=== PATIENT | female | born 1945 | race Caucasian/White ===

== ENCOUNTER 2017-02-08 13:41 | Inpatient (IN) | payer OTHER, BC ==
[~2017-02-08] VITALS: Ht 154.9 cm; Wt 132.8 kg
[~2017-02-08 13:41] MED LIST: ADVIL200 MG PO; ANASTROZOLE1 MG PO; ASMANEX TW200 MICRO1 IH; BACITRACIN28.4 GM TP; CALTRATE 6001 TABLET PO; CLARITIN10 M3 PO; FLONASE16 G1 BOTH NARES; LEVAQUIN750 MG PO; LOTRIMIN AF24 GM TP; MONTELUKAST SOD10 MG PO; NEOSPORIN68 ML TP; PROAIR HFA8.5 GM IH; REFRESH TEARS15 ML OP; TEGRETOL-XR,CA400 MG PO
[2017-02-08 14:51] LABS: HEMATOCRIT 42.5 % (36.0-46.0); MCH 31.1 PG (29.0-34.0); MCHC 32.2 G/DL (30.0-36.0); MCV 96.6 FL (83-99); PLATELET COUNT 204 K/uL (156-360); RBC DIS.WIDTH-CV 13.1 % (11.8-14.6); RBC DIS.WIDTH-SD 46.8 % (39-53); WHITE BLOOD COUNT 12.1 K/uL (4.1-10.2)
[2017-02-08 15:03] LABS: CHLORIDE 104 mEq/L (99-109); D-DIMER ELISA 0.94 mg/L FEU (< 0.57); INTER. NORMALIZED RATIO 1.1; POTASSIUM 3.9 mEq/L (3.7-5.4); PROTHROMBIN TIME 10.7 (9.2-11.2); PTT 29.1 (25-32); SODIUM 138 mEq/L (136-147)
[2017-02-08 15:04] LABS: GLUCOSE 123 mg/dL (70-99)
[2017-02-08 15:06] LABS: ANION GAP 11 MEQ/L (2-14)
[2017-02-08 15:08] LABS: GFR ESTIMATE (CALCULATED) > 59 mL/min/
[2017-02-08 15:09] LABS: UREA NITROGEN (BUN) 16 mg/dL (9-23)
[2017-02-08 15:15] LABS: TROP-I INTERPRETATION NEGATIVE; TROPONIN-I < 0.01 ng/mL (0.0-0.30)
[2017-02-08] MEDS ORDERED: VENTOLIN HFA18 GM IH (18:37)
[2017-02-08] MEDS ORDERED: CLARITIN,ALAVAR10 MG PO (18:37)
[2017-02-08] MEDS ORDERED: REFRESH TEARS15 ML BOTH EYES (18:38)
[2017-02-08] MEDS ORDERED: NEOSPORIN ANT70.8 GM TP (18:39)
[2017-02-08] MEDS ORDERED: SYMBICORT60 INHALAT IH (18:40)
[2017-02-09 00:31] VITALS: BP 131/65
[2017-02-09 03:44] VITALS: BP 148/67
[2017-02-09 07:54] LABS: HEMATOCRIT 41.1 % (36.0-46.0); MCH 31.5 PG (29.0-34.0); MCHC 32.6 G/DL (30.0-36.0); MCV 96.7 FL (83-99); MEAN PLAT.VOLUME 9.8 uM^3 (9.5-12.4); PLATELET COUNT 219 K/uL (156-360); RBC DIS.WIDTH-CV 13.1 % (11.8-14.6); RBC DIS.WIDTH-SD 46.5 % (39-53); RED BLOOD COUNT 4.25 M/uL (3.80-5.20); WHITE BLOOD COUNT 10.3 K/uL (4.1-10.2)
[2017-02-09 08:00] VITALS: BP 134/63
[2017-02-09 11:55] VITALS: BP 143/61
[2017-02-09 15:01] VITALS: BP 140/55
[2017-02-09 19:21] VITALS: BP 147/65
[2017-02-10 01:15] VITALS: BP 131/59
[2017-02-10 03:43] VITALS: BP 136/58
[2017-02-10 07:51] VITALS: BP 130/59
[2017-02-10 10:57] VITALS: BP 143/70
[2017-02-10 15:44] VITALS: BP 129/67
[2017-02-11 01:11] VITALS: BP 109/55
[2017-02-11 08:00] VITALS: BP 154/67
[2017-02-11 08:30] LABS: HEMATOCRIT 41.8 % (36.0-46.0); MCH 30.6 PG (29.0-34.0); MCHC 31.6 G/DL (30.0-36.0); MEAN PLAT.VOLUME 9.3 uM^3 (9.5-12.4); PLATELET COUNT 207 K/uL (156-360); RBC DIS.WIDTH-CV 13.1 % (11.8-14.6); RBC DIS.WIDTH-SD 46.7 % (39-53); RED BLOOD COUNT 4.31 M/uL (3.80-5.20); WHITE BLOOD COUNT 8.9 K/uL (4.1-10.2)
[2017-02-11 09:31] LABS: ALKALINE PHOSPHATASE 45 IU/L (3-129); ANION GAP 12 MEQ/L (2-14); CHLORIDE 103 MEQ/L (99-109); GFR ESTIMATE (CALCULATED) > 59 mL/min/; GLUCOSE 135 mg/dL (70-99); POTASSIUM 3.5 MEQ/L (3.7-5.4); SAMPLE HEMOLYSIS CHECK 0; SAMPLE ICTERIC CHECK 0; SAMPLE LIPEMIA CHECK 0; SODIUM 138 MEQ/L (136-147); TOTAL BILIRUBIN 0.4 MG/DL (0.0-1.0); UREA NITROGEN (BUN) 14 mg/dL (9-23)
[2017-02-11 16:08] VITALS: BP 135/62
[2017-02-12 00:13] VITALS: BP 134/60
[2017-02-12 06:57] VITALS: BP 144/63
[2017-02-12 15:59] VITALS: BP 147/99
[2017-02-13 00:30] VITALS: BP 123/60
[2017-02-13 07:00] VITALS: BP 129/58
[2017-02-13 16:00] VITALS: BP 139/65
[2017-02-13 19:32] VITALS: BP 130/60
[2017-02-13 23:33] VITALS: BP 133/60
[2017-02-14 03:58] VITALS: BP 145/63
[2017-02-14 07:13] LABS: ANION GAP 10 MEQ/L (2-14); CHLORIDE 106 MEQ/L (99-109); GFR ESTIMATE (CALCULATED) > 59 mL/min/; GLUCOSE 120 mg/dL (70-99); POTASSIUM 4.2 MEQ/L (3.7-5.4); SAMPLE HEMOLYSIS CHECK 0; SAMPLE ICTERIC CHECK 0; SAMPLE LIPEMIA CHECK 0; SODIUM 138 MEQ/L (136-147); UREA NITROGEN (BUN) 16 mg/dL (9-23)
[2017-02-14] MEDS ORDERED: AUGMENTIN875 MG PO (07:47)
[2017-02-14 07:56] VITALS: BP 135/62
== END 2017-02-14 09:17 | disposition home or self-care (01) | DRG 166 ==
LOC: EME 13:41 → EDOF 22:15 → 2EAST 22:15
PROVIDERS: Emergency Medicine; Internal Medicine
DX: C78.02 Secondary malignant neoplasm of left lung (principal); J18.0 Bronchopneumonia, unspecified organism; R04.2 Hemoptysis; G47.33 Obstructive sleep apnea (adult) (pediatric); E66.01 Morbid (severe) obesity due to excess calories; Z68.43 Body mass index [BMI] 50.0-59.9, adult; G40.909 Epilepsy, unspecified, not intractable, without status epilepticus; J45.909 Unspecified asthma, uncomplicated; M79.7 Fibromyalgia
CPT/HCPCS: 71020; 71275; 80048; 80053; 83880; 84484; 85027; 85379; 85610; 85730; 87070; 87205; 88108; 88173; 88305; 93005; 94640; 94640 76; 94799; 99202; 99281; 99284; J0456; J0461; J0696; J2175; J2250; J2310; J2550; J3010; J7050

== ENCOUNTER 2017-12-27 21:25 | Observation (INO) | payer OTHER, BC ==
[~2017-12-27] VITALS: Ht 154.9 cm; Wt 131.8 kg
[~2017-12-27 21:25] MED LIST changes: +AUGMENTIN875 MG PO; +CLARITIN,ALAVAR10 MG PO; +NEOSPORIN ANT70.8 GM TP; +REFRESH TEARS15 ML BOTH EYES; +SYMBICORT60 INHALAT IH; +VENTOLIN HFA18 GM IH
[2017-12-27 22:53] LABS: BASOPHIL (%) 0.3 % (0-1); EOSINOPHIL (%) 0 % (0-5); HEMATOCRIT 40.6 % (36.0-46.0); HEMOGLOBIN 13.4 G/DL (11.9-15.5); IMMATURE GRANULOCYTE (%) 0.6 % (0.0-0.7); LYMPHOCYTE (%) 12.9 % (15-42); LYMPHOCYTE COUNT 1.4 K/uL (1.0-2.8); MCH 31.6 PG (29.0-34.0); MCV 95.8 FL (83-99); MONOCYTE (%) 7.1 % (3-12); MONOCYTE COUNT 0.8 K/uL (0-0.8); NEUTROPHIL (%) 79.1 % (45-76); NEUTROPHIL COUNT 8.3 K/uL (1.8-6.4); PLATELET COUNT 188 K/uL (156-360); RBC DIS.WIDTH-CV 13.1 % (11.8-14.6); RBC DIS.WIDTH-SD 46.5 % (39-53); RED BLOOD COUNT 4.24 M/uL (3.80-5.20); WHITE BLOOD COUNT 10.5 K/uL (4.1-10.2)
[2017-12-27 23:03] LABS: CHLORIDE 100 mEq/L (99-109); POTASSIUM 4.3 mEq/L (3.7-5.4); SODIUM 137 mEq/L (136-147)
[2017-12-27 23:04] LABS: GLUCOSE 156 mg/dL (70-99)
[2017-12-27 23:08] LABS: CREATININE 0.8 mg/dL (0.6-1.3); GFR ESTIMATE (CALCULATED) > 59 mL/min/
[2017-12-27 23:09] LABS: UREA NITROGEN (BUN) 17 mg/dL (9-23)
[2017-12-27 23:13] LABS: TROP-I INTERPRETATION NEGATIVE; TROPONIN-I 0.06 ng/mL (0.0-0.30)
[2017-12-28 01:06] LABS: TROP-I INTERPRETATION NEGATIVE; TROPONIN-I 0.07 ng/mL (0.0-0.30)
[2017-12-28 03:19] LABS: TROP-I INTERPRETATION NEGATIVE
[2017-12-28 10:35] LABS: TROP-I INTERPRETATION NEGATIVE; TROPONIN-I 0.05 ng/mL (0.0-0.30)
[2017-12-28] MEDS ORDERED: NEOSPORIN TP (10:37)
[2017-12-28] MEDS ORDERED: NYSTATIN15 GM TP (10:37)
[2017-12-28] MEDS ORDERED: XELODA500 MG PO (10:38)
[2017-12-28] MEDS ORDERED: NITROSTAT0.4 MG SL (11:17)
[2017-12-28 13:29] VITALS: BP 138/69
== END 2017-12-28 13:55 | disposition home or self-care (01) ==
LOC: EME → EDBD 21:25 → EME 21:25 → CANRESERV 12-28 06:00 → EDOF 12-28 06:00 → ENRESERV 12-28 06:00 → EDOF 12-28 06:00
PROVIDERS: Emergency Medicine; Physician Assistant
DX: R07.89 Other chest pain (principal); C50.919 Malignant neoplasm of unspecified site of unspecified female breast; C78.00 Secondary malignant neoplasm of unspecified lung; G40.909 Epilepsy, unspecified, not intractable, without status epilepticus; E66.01 Morbid (severe) obesity due to excess calories; Z68.43 Body mass index [BMI] 50.0-59.9, adult; G47.33 Obstructive sleep apnea (adult) (pediatric); Z92.21 Personal history of antineoplastic chemotherapy; J45.909 Unspecified asthma, uncomplicated; I89.0 Lymphedema, not elsewhere classified; B37.2 Candidiasis of skin and nail; Z90.12 Acquired absence of left breast and nipple; Z90.49 Acquired absence of other specified parts of digestive tract; Z90.710 Acquired absence of both cervix and uterus; Z80.7 Family history of other malignant neoplasms of lymphoid, hematopoietic and related tissues; Z80.8 Family history of malignant neoplasm of other organs or systems; Z91.018 Allergy to other foods; Z91.030 Bee allergy status; Z88.6 Allergy status to analgesic agent; Z88.5 Allergy status to narcotic agent; Z91.048 Other nonmedicinal substance allergy status; Z91.040 Latex allergy status; Z88.8 Allergy status to other drugs, medicaments and biological substances; Z88.1 Allergy status to other antibiotic agents
CPT/HCPCS: 71046; 71275; 80048; 84484; 85025; 93005; 94640; 99202; 99281; 99285; G0378